=== PATIENT | male | born 1960 | race Caucasian/White ===

== ENCOUNTER 2017-02-05 20:32 | Observation (INO) | payer OTHER ==
[~2017-02-05] VITALS: Ht 157.5 cm; Wt 59.1 kg
[~2017-02-05 20:32] MED LIST: ACCUPRIL TAB 5MG5 MG PO; ASPIRIN 325MG325 MG NG; ASPIRIN 325MG325 MG PO; EFFIENT10 MG PO; IMDUR ER TAB 3030 MG PO; LIPITOR TAB 1010 MG PO; LOPRESSOR 25 MG25 MG PO; RANEXA500 MG PO
[2017-02-05 22:03] LABS: HEMOGLOBIN 14.3 gm/dl (14.0-17.5); RED BLOOD COUNT 4.29 M/UL (4.20-5.50); WHITE BLOOD COUNT 12.6 K/UL (4.5-11.0)
[2017-02-05 22:24] LABS: BUN/CREATININE RATIO 14 (0-10)
[2017-02-06] MEDS ORDERED: EFFIENT10 MG PO (08:52)
[2017-02-06] MEDS ORDERED: NEURONTIN600 MG PO (08:53)
[2017-02-06] MEDS ORDERED: LORTAB 5-325 M1 EACH PO (08:55)
== END 2017-02-06 19:00 | disposition home or self-care (01) ==
LOC: ER1 20:32 → ZEROF 23:25 → ER1 23:25 → ZEROF 02-06 06:00 → PROG CARE 02-06 06:15 → ZEROF 02-06 06:15 → PROG CARE 02-06 06:15 → ZEROF 02-06 19:00 → PROG CARE 02-06 19:00 → ZEROF 02-06 19:00
PROVIDERS: Emergency Medicine; ADMIT Hospitalist
DX: R07.89 Other chest pain (principal); R91.1 Solitary pulmonary nodule; I10 Essential (primary) hypertension; E78.5 Hyperlipidemia, unspecified; M54.9 Dorsalgia, unspecified; G89.29 Other chronic pain; J44.9 Chronic obstructive pulmonary disease, unspecified; I25.10 Atherosclerotic heart disease of native coronary artery without angina pectoris; Z99.81 Dependence on supplemental oxygen; Z79.82 Long term (current) use of aspirin; Z79.899 Other long term (current) drug therapy; Z95.5 Presence of coronary angioplasty implant and graft; Z95.1 Presence of aortocoronary bypass graft; Z98.52 Vasectomy status; Z88.0 Allergy status to penicillin; Z88.2 Allergy status to sulfonamides; Z87.891 Personal history of nicotine dependence; Z82.49 Family history of ischemic heart disease and other diseases of the circulatory system
CPT/HCPCS: ECHO; 36415; 71010; 80053; 80061; 81001; 82550; 82553; 82962; 83690; 83880; 84484; 85025; 85379; 85610; 85730; 87086; 93005; 93306; 94640; 94664; 96374; 96376; 99285; G0378; J2270; J7030

== ENCOUNTER → 2020-12-30 | Day surgery (SDC) | payer OTHER ==
[~2020-12-30] MED LIST changes: +ALBUTEROL2.5 MG/3 M INH; +ALPRAZOLAM0.5 MG PO; +HYDROCODONE-AC1 EAC1 PO; +INCRUSE ELLI62.5 MCG INH; +LORTAB 5-325 M1 EACH PO; +NEURONTIN600 MG PO; +NORVASC5 MG PO; +ST. JOSEPH ASPI81 M1 PO; +THEOPHYLLINE A300 MG PO; +VENTOLIN/PROVE0.5 ML INH
== END | disposition home or self-care (01) ==
LOC: OR 06:20
DX: R91.8 Other nonspecific abnormal finding of lung field (principal); R59.0 Localized enlarged lymph nodes; R94.2 Abnormal results of pulmonary function studies; R94.8 Abnormal results of function studies of other organs and systems; G47.34 Idiopathic sleep related nonobstructive alveolar hypoventilation; I25.10 Atherosclerotic heart disease of native coronary artery without angina pectoris; I11.0 Hypertensive heart disease with heart failure; I50.9 Heart failure, unspecified; E78.5 Hyperlipidemia, unspecified; G47.9 Sleep disorder, unspecified; F41.9 Anxiety disorder, unspecified; J44.9 Chronic obstructive pulmonary disease, unspecified; F17.210 Nicotine dependence, cigarettes, uncomplicated; Z95.1 Presence of aortocoronary bypass graft; Z88.0 Allergy status to penicillin; Z88.2 Allergy status to sulfonamides; Z82.49 Family history of ischemic heart disease and other diseases of the circulatory system; Z80.8 Family history of malignant neoplasm of other organs or systems; Z79.899 Other long term (current) drug therapy; Z79.82 Long term (current) use of aspirin
CPT/HCPCS: 76000; J2001; J2704; J7120

== ENCOUNTER → 2021-02-12 | Outpatient (CLI) | payer OTHER | LOC: EMI 14:35 | DX: Z12.89 Encounter for screening for malignant neoplasm of other sites (principal); C34.32 Malignant neoplasm of lower lobe, left bronchus or lung; G31.9 Degenerative disease of nervous system, unspecified | CPT/HCPCS: 70553; A9577 ==

== ENCOUNTER → 2021-03-03 | Day surgery (SDC) | payer OTHER | END | disposition home or self-care (01) | LOC: OR 07:30 | PROVIDERS: Surgery | PROC: 02HV33Z Insertion of Infusion Device into Superior Vena Cava, Percutaneous Approach (ICD-10-PCS; principal; 2021-03-03 07:30) | DX: C34.00 Malignant neoplasm of unspecified main bronchus (principal); I10 Essential (primary) hypertension; J44.9 Chronic obstructive pulmonary disease, unspecified; I25.10 Atherosclerotic heart disease of native coronary artery without angina pectoris; M19.90 Unspecified osteoarthritis, unspecified site; Q24.9 Congenital malformation of heart, unspecified; E78.00 Pure hypercholesterolemia, unspecified; E78.5 Hyperlipidemia, unspecified; G47.00 Insomnia, unspecified; C78.1 Secondary malignant neoplasm of mediastinum; C80.1 Malignant (primary) neoplasm, unspecified; I25.2 Old myocardial infarction; F17.210 Nicotine dependence, cigarettes, uncomplicated; D64.9 Anemia, unspecified; Z95.1 Presence of aortocoronary bypass graft; Z88.0 Allergy status to penicillin; Z88.2 Allergy status to sulfonamides; Z79.82 Long term (current) use of aspirin; Z79.899 Other long term (current) drug therapy; Z95.5 Presence of coronary angioplasty implant and graft; Z20.822 Contact with and (suspected) exposure to COVID-19 | CPT/HCPCS: 71045; 77001; C1769; C1788; J1642; J2250; J2405; J2704; J3010; J7030; J7040; J7120 ==

== ENCOUNTER 2021-09-10 21:34 | Emergency (ER) | payer OTHER ==
[2021-09-10 22:20] LABS: HEMOGLOBIN 9.3 gm/dl (14.0-17.5); RED BLOOD COUNT 2.73 M/UL (4.20-5.50); WHITE BLOOD COUNT 4.1 K/UL (4.5-11.0)
[2021-09-10 22:52] LABS: BUN/CREATININE RATIO 7 (0-10)
[2021-09-11] MEDS ORDERED: DOXYCYCLINE HY100 MG PO (01:13)
== END 2021-09-11 01:45 | disposition home or self-care (01) ==
LOC: ER1 21:34
PROVIDERS: Family Medicine
DX: R07.9 Chest pain, unspecified (principal); J44.9 Chronic obstructive pulmonary disease, unspecified; I25.10 Atherosclerotic heart disease of native coronary artery without angina pectoris; F17.200 Nicotine dependence, unspecified, uncomplicated
CPT/HCPCS: 71045; 80053; 82550; 82553; 83605; 83874; 84484; 85025; 85379; 85610; 93005; 99285; J1642; Q9967

== ENCOUNTER → 2022-02-26 | Outpatient (CLI) | payer OTHER ==
[~2022-02-26] MED LIST changes: +DOXYCYCLINE HY100 MG PO
== END ==
LOC: CT 13:46
DX: Z51.11 Encounter for antineoplastic chemotherapy (principal); C34.32 Malignant neoplasm of lower lobe, left bronchus or lung
CPT/HCPCS: 36415; 71260; 82565; 84520; Q9967